=== PATIENT | female | born 1965 | race American Indian/Alaskan Native ===

== ENCOUNTER 2021-07-08 10:30 | Emergency (ER) | payer BC ==
[2021-07-08] MEDS ORDERED: KETOROLAC 30 MG/1 ML INJ IM ONE (13:14)
--- NOTE | 2021-07-08 13:17 | Emergency Department Report ---
ED Neck Pain/Injury HPI - General Chief Complaint: Neck Pain/Injury Stated Complaint: NECK AND SHOULDER PAIN LEFT SIDE Mode of arrival: Ambulatory Limitations: No Limitations - History of Present Illness Initial Comments: 56-year-old male presents to the ED complaining of neck pain and left shoulder x1 week ago. Patient states that he was lifting a generator and the engine from a car x1 week ago. She states pain has been intermittent since. Patient states that he has not been using any prior medication for treatment. Patient able to move extremity without any difficulty. Patient states pain is a current 10 out of 10. Patient described pain has a muscle stiffness. Patient is able to move left shoulder without any difficulty . No obvious deformity noted. No edema noted. No distracting injury noted. MD Complaint: neck pain Onset/Timin -: week(s) Place: home Radiation: left shoulder Severity: moderate Severity scale (0 -10): 10 Quality: aching Consistency: intermittent Improves With: none Worsens With: none Associated Symptoms: none - Related Data Previous Rx's Medication Instructions Recorded Last Taken Type Cyclobenzaprine [Flexeril] 10 mg PO TID PRN 15 Days #30 tab 07/08/21 Unknown Rx Naproxen [Naprosyn] 500 mg PO BID 15 Days #30 tablet 07/08/21 Unknown Rx predniSONE [Deltasone] 50 mg PO QDAY 5 Days #5 tab 07/08/21 Unknown Rx Allergies Allergy/AdvReac Type Severity Reaction Status Date / Time No Known Allergies Allergy Unverified 07/08/21 10:56 ED Review of Systems ROS: Stated complaint: NECK AND SHOULDER PAIN LEFT SIDE Other details as noted in HPI Constitutional: denies: chills, fever Eyes: denies: eye pain, eye discharge, vision change ENT: denies: ear pain, throat pain Respiratory: denies: cough, shortness of breath, wheezing Cardiovascular: denies: chest pain, palpitations Endocrine: no symptoms reported Gastrointestinal: denies: abdominal pain, nausea, diarrhea Genitourinary: denies: urgency, dysuria, discharge Musculoskeletal: denies: back pain, joint swelling, arthralgia Skin: denies: rash, lesions Neurological: denies: headache, weakness, paresthesias Psychiatric: denies: anxiety, depression Hematological/Lymphatic: denies: easy bleeding, easy bruising ED Past Medical Hx - Past Medical History Previous Medical History?: Yes Hx Hypertension: Yes - Surgical History Past Surgical History?: Yes Additional Surgical History: Cervical disk - Medications Home Medications: Home Medications Medication Instructions Recorded Confirmed Last Taken Type Cyclobenzaprine [Flexeril] 10 mg PO TID PRN 15 Days #30 tab 07/08/21 Unknown Rx Naproxen [Naprosyn] 500 mg PO BID 15 Days #30 tablet 07/08/21 Unknown Rx predniSONE [Deltasone] 50 mg PO QDAY 5 Days #5 tab 07/08/21 Unknown Rx ED Physical Exam - General Limitations: No Limitations General appearance: alert, in no apparent distress - Head Head exam: Present: atraumatic, normocephalic - Eye Eye exam: Present: normal appearance - ENT ENT exam: Present: mucous membranes moist - Neck Neck exam: Present: normal inspection, full ROM - Respiratory Respiratory exam: Present: normal lung sounds bilaterally. Absent: respiratory distress - Cardiovascular Cardiovascular Exam: Present: regular rate, normal rhythm. Absent: systolic murmur, diastolic murmur, rubs, gallop - GI/Abdominal GI/Abdominal exam: Present: soft, normal bowel sounds - Extremities Exam Extremities exam: Present: normal inspection - Back Exam Back exam: Present: normal inspection - Neurological Exam Neurological exam: Present: alert, oriented X3 - Psychiatric Psychiatric exam: Present: normal affect, normal mood - Skin Skin exam: Present: warm, dry, intact, normal color. Absent: rash ED Course Vital Signs 07/08/21 07/08/21 10:58 13:59 Temperature 98.0 F 97.7 F Pulse Rate 63 79 Respiratory 20 20 Rate Blood Pressure 157/89 Blood Pressure 132/86 [Right] O2 Sat by Pulse 98 100 Oximetry ED Medical Decision Making - Medical Decision Making 56-year-old male presents to the ED complaining of neck pain and left shoulder x1 week ago. Patient states that he was lifting a generator and the engine from a car x1 week ago. She states pain has been intermittent since. Patient states that he has not been using any prior medication for treatment. Patient able to move extremity without any difficulty. Patient states pain is a current 10 out of 10. Patient described pain has a muscle stiffness. Patient is able to move left shoulder without any difficulty . No obvious deformity noted. No edema noted. No distracting injury noted. Physical examination is u nremarkable. No obvious deformity noted. No distracting injury noted. No deformity noted. Rechecked the patient is resting quietly quietly and comfortable and feeling better. I discussed the results of diagnostic study, my clinical impression and the plan for further treatment with the patient. Patient agrees with plan and discharge at this present time. All question addressed. I have given the patient instruction regarding a diagnosis ,expectation ,follow- up and return precaution. I explained to the patient that emergent condition may arise and to return to the ED for new worsen and any new persisting condition. I have explained the importance of following up with the primary care physician or referral physician listed below has instructed. The patient verbalized understanding of discharge instruction. Critical care attestation.: If time is entered above; I have spent that time in minutes in the direct care of this critically ill patient, excluding procedure time. ED Disposition Clinical Impression: Neck pain Left shoulder pain Qualifiers: Chronicity: acute Qualified Code(s): M25.512 - Pain in left shoulder Disposition: 01 HOME / SELF CARE / HOMELESS Is pt being admited?: No Does the pt Need Aspirin: No Condition: Stable Instructions: Shoulder Pain, How to Use Cold Therapy, [id number], Shoulder P ain, [id number], Pain Without a Known Cause Additional Instructions: 56-year-old male presents to the ED complaining of neck pain and left shoulder x1 week ago. Patient states that he was lifting a generator and the engine from a car x1 week ago. She states pain has been intermittent since. Patient states that he has not been using any prior medication for treatment. Patient able to move extremity without any difficulty. Patient states pain is a current 10 out of 10. Patient described pain has a muscle stiffness. Patient is able to move left shoulder without any difficulty . No obvious deformity noted. No edema noted. No distracting injury noted. Rechecked the patient is resting quietly quietly and comfortable and feeling better. I discussed the results of diagnostic study, my clinical impression and the plan for further treatment with the patient. Patient agrees with plan and discharge at this present time. All question addressed. I have given the patient instruction regarding a diagnosis ,expectation ,follow- up and return precaution. I explained to the patient that emergent condition may arise and to return to the ED for new worsen and any new persisting condition. I have explained the importance of following up with the primary care physician or referral physician listed below has instructed. The patient verbalized understanding of discharge instruction. Prescriptions: predniSONE [Deltasone] 50 mg PO QDAY 5 Days #5 tab Cyclobenzaprine [Flexeril] 10 mg PO TID PRN 15 Days #30 tab PRN Reason: Muscle Spasm Naproxen [Naprosyn] 500 mg PO BID 15 Days #30 tablet Referrals: JULIET DAVIDSON II, MD [Staff Physician] - 3-5 Days Forms: Work/School Release Form(ED) Time of Disposition: 13:26
[2021-07-08 14:00] VITALS: BP 132/86
== END 2021-07-08 13:59 | disposition home or self-care (01) ==
LOC: ED 10:30
DX: M54.9 Dorsalgia, unspecified (principal); M25.512 Pain in left shoulder; I10 Essential (primary) hypertension
CPT/HCPCS: 96372; 99282; J1885